=== PATIENT | male | born 2000 | race Caucasian/White ===

== ENCOUNTER 2024-08-01 07:16 | Inpatient (IN) | payer MEDICAID, OTHER ==
[~2024-08-01] VITALS: Ht 177.8 cm; Wt 60.3 kg
[2024-08-01] MEDS ORDERED: ZOLPIDEM TARTRATE 10 MG TABLET PO PRN (12:30)
[2024-08-01] MEDS ORDERED: OMEPRAZOLE 20 MG CAPSULE PO PRN (16:15)
[2024-08-01] MEDS ORDERED: PETROLATUM,WHITE 28 GM JELLY TP PRN (16:15)
[2024-08-01] MEDS ORDERED: LOPERAMIDE HCL 2 MG CAPSULE PO PRN (16:15)
[2024-08-01] MEDS ORDERED: BENZOCAINE/MENTHOL [CEPACOL] LOZENGE PO PRN (16:15)
[2024-08-01] MEDS ORDERED: MAGNESIUM HYDROXIDE SUSPENSION 30 ML UDCUP PO PRN (16:15)
[2024-08-01] MEDS ORDERED: ONDANSETRON 4 MG TABLET PO PRN (16:15)
[2024-08-01] MEDS ORDERED: DOCUSATE SODIUM 100 MG CAPSULE PO PRN (16:15)
[2024-08-01] MEDS ORDERED: MAG HYDROX/ALUMINUM HYD/SIMETH ES 30 ML SUSPENSION UDCUP PO PRN (16:15)
[2024-08-01] MEDS ORDERED: ALBUTEROL SULFATE HFA 90 MCG/PUFF 8 GM INHALER IH PRN (16:15)
[2024-08-01] MEDS ORDERED: BACITRACIN 28 GM OINTMENT TP PRN (16:15)
[2024-08-01 20:09] VITALS: RESP 18
[2024-08-02 08:54] VITALS: BP 108/64; PULSE 77; RESP 17; TEMP 97.6; O2SAT 99
[2024-08-02 20:05] VITALS: BP 124/73; PULSE 75; RESP 16; TEMP 97.6; O2SAT 100
[2024-08-03 08:31] VITALS: BP 103/60; PULSE 68; RESP 15; TEMP 97.7; O2SAT 99
[2024-08-03 20:35] VITALS: BP 152/80; PULSE 128; RESP 18; TEMP 97.7; O2SAT 98
[2024-08-03] MEDS: LORazepam 2 MG/ML VIAL IM ONE (20:46)
[2024-08-04 08:10] VITALS: BP 90/63; PULSE 63; RESP 16; TEMP 97.9; O2SAT 100
[2024-08-04] MEDS: NICOTINE POLACRILEX 4 MG LOZENGE PO PRN (20:11)
[2024-08-04 21:13] VITALS: BP 101/66; PULSE 81; RESP 18; TEMP 98.1; O2SAT 99
[2024-08-05 08:35] LABS: PLATELET COUNT (AUTO) 272 K/uL (150-450); RED BLOOD CELL COUNT(AUTO) 5.18 MIL/uL (4.50-5.90); RED CELL DISTRIBUTION WIDTH 13.5 % (11.5-14.5); WHITE BLOOD COUNT (AUTO) 5.1 K/uL (4.5-11.0)
[2024-08-05 08:58] VITALS: RESP 18
[2024-08-05 09:17] LABS: ASPARTATE AMINOTRANSFERASE 30 U/L (15-37); CALCIUM, TOTAL 9.0 mg/dL (8.8-10.5); CHOL/HDL RATIO 3.8 (4.2-7.3); CREATININE 0.93 mg/dL (0.60-1.30); GLOMERULAR FILTR. RATE CALC > 60 mL/min (>60); GLUCOSE,RANDOM 79 mg/dL (70-110); LDL CHOL (CALC.) 67 mg/dL (0-130); SODIUM SERUM 142 mmol/L (136-145); TOTAL PROTEIN, SERUM 7.2 g/dL (6.4-8.2); UREA NITROGEN, BLOOD 13 mg/dL (7-18)
[2024-08-05 09:33] LABS: APPEARANCE,URINE CLEAR (CLEAR); GLUCOSE, URINE (UA) NEGATIVE (NEGATIVE); LEUKOCYTE ESTERASE ,URINE NEGATIVE (NEGATIVE); NITRATE,URINE NEGATIVE (NEGATIVE); OCCULT BLOOD,URINE NEGATIVE (NEGATIVE); PH,URINE DRUG SCREEN 7.5 (5.0-8.0); SPECIFIC GRAVITIY, URINE 1.027 (1.003-1.030)
[2024-08-05 09:38] LABS: ALCOHOL, URINE DRUG SCREEN NEGATIVE (NEGATIVE); AMPHET/METH SCREEN,URINE NEGATIVE (NEGATIVE); BARBITURATE SCREEN, URINE NEGATIVE (NEGATIVE); CANNABINOID SCREEN,URINE POSITIVE (NEGATIVE); COCAINE SCREEN,URINE NEGATIVE (NEGATIVE); METHADONE SCREEN, URINE NEGATIVE (NEGATIVE)
[2024-08-05 20:24] VITALS: BP 110/76; PULSE 72; RESP 17; TEMP 97.9; O2SAT 99
[2024-08-06 08:24] VITALS: BP 102/65; PULSE 68; RESP 15; TEMP 98.3; O2SAT 99
[2024-08-06 20:30] VITALS: BP 124/88; PULSE 77; RESP 16; TEMP 98.6
[2024-08-07 09:03] VITALS: RESP 18
[2024-08-07 20:11] VITALS: BP 121/84; PULSE 85; RESP 18; TEMP 97.5; O2SAT 99
[2024-08-08 08:14] VITALS: BP 118/78; PULSE 99; RESP 17; TEMP 97.8; O2SAT 90
[2024-08-08 22:07] VITALS: BP 104/58; PULSE 88; RESP 15; TEMP 97.6; O2SAT 99
[2024-08-09 08:15] VITALS: BP 109/76; PULSE 94; RESP 18; TEMP 98; O2SAT 96
[2024-08-09 20:10] VITALS: BP 116/74; PULSE 84; RESP 16; TEMP 97.5; O2SAT 100
[2024-08-10] VITALS (7 sets, daily range): BP systolic 98–148; BP diastolic 61–90; PULSE 86–115; RESP 16–20; TEMP 97.2–102.9; O2SAT 95–99
[2024-08-10] MEDS: ACETAMINOPHEN 325 MG TABLET PO PRN (11:16)
[2024-08-11 08:23] VITALS: BP 130/75; PULSE 96; RESP 16; TEMP 98.7; O2SAT 99
[2024-08-11 20:10] VITALS: BP 130/98; PULSE 91; RESP 18; TEMP 97.8; O2SAT 98
[2024-08-12 13:46] VITALS: RESP 18
[2024-08-12] MEDS: IBUPROFEN 600 MG TABLET PO PRN (13:46)
[2024-08-12 14:46] VITALS: RESP 18
[2024-08-12 20:43] VITALS: BP 105/55; PULSE 87; RESP 18; TEMP 99.3
[2024-08-13 08:36] VITALS: BP 127/89; PULSE 100; RESP 17; TEMP 98.1; O2SAT 99
[2024-08-13 20:33] VITALS: BP 134/87; PULSE 85; RESP 18; TEMP 98.6; O2SAT 98
[2024-08-14 20:32] VITALS: BP 151/105; PULSE 91; RESP 18; TEMP 98.2; O2SAT 100
[2024-08-15 14:05] VITALS: BP 119/88; PULSE 105; RESP 18; TEMP 98.8; O2SAT 96
[2024-08-15 20:26] VITALS: BP 124/72; PULSE 95; RESP 18; TEMP 97.2; O2SAT 98
[2024-08-16 08:15] VITALS: BP 127/89; PULSE 97; RESP 18; TEMP 97.9; O2SAT 100
[2024-08-16 20:45] VITALS: BP 98/82; PULSE 95; RESP 18; TEMP 97.7; O2SAT 100
[2024-08-17 08:17] VITALS: BP 130/86; PULSE 99; RESP 17; TEMP 97; O2SAT 100
[2024-08-17 20:29] VITALS: BP 135/80; PULSE 82; RESP 17; TEMP 98.1; O2SAT 97
[2024-08-18 14:10] VITALS: RESP 18; TEMP 97.8
[2024-08-18 21:33] VITALS: BP 120/80; PULSE 101; RESP 16; TEMP 98; O2SAT 98
[2024-08-19 08:51] VITALS: BP 104/72; PULSE 87; RESP 17; TEMP 101.7; O2SAT 98
[2024-08-19] MEDS ORDERED: LORazepam 2 MG/ML VIAL ONE (12:58)
[2024-08-19] MEDS: LORazepam 2 MG/ML VIAL IM ONE (13:31)
[2024-08-19 20:37] VITALS: BP 125/72; PULSE 82; RESP 17; TEMP 98.3; O2SAT 98
[2024-08-20 08:42] VITALS: BP 107/69; PULSE 82; RESP 18; TEMP 98.1; O2SAT 99
[2024-08-20] MEDS ORDERED: LORazepam 2 MG/ML VIAL ONE (18:09)
[2024-08-20] MEDS: LORazepam 2 MG/ML VIAL IM ONE (19:39)
[2024-08-20 20:30] VITALS: BP 116/72; PULSE 84; RESP 18; TEMP 97.9; O2SAT 97
[2024-08-21 10:37] VITALS: RESP 16
[2024-08-21 20:26] VITALS: BP 137/73; PULSE 86; RESP 17; TEMP 98.8; O2SAT 98
[2024-08-22 08:45] VITALS: BP 129/97; PULSE 89; RESP 18; TEMP 98; O2SAT 97
[2024-08-22 20:45] VITALS: BP 119/73; PULSE 79; RESP 16; TEMP 97.4; O2SAT 98
[2024-08-23 08:48] VITALS: BP 126/84; PULSE 97; RESP 18; TEMP 98.1; O2SAT 97
[2024-08-23 15:45] VITALS: BP 143/102; PULSE 118; RESP 18; TEMP 98.4; O2SAT 96
[2024-08-23 17:07] VITALS: BP 121/88; PULSE 107; RESP 18
[2024-08-23 23:18] VITALS: BP 123/74; PULSE 102; RESP 18; TEMP 98.4; O2SAT 98
[2024-08-24 09:30] VITALS: BP 98/59; PULSE 69; RESP 17; TEMP 97.3; O2SAT 97
[2024-08-24 13:30] VITALS: BP 118/68; PULSE 76
[2024-08-24 23:54] VITALS: BP 102/56; PULSE 94; RESP 18; TEMP 97.2; O2SAT 97
[2024-08-25 08:00] VITALS: BP 118/80; PULSE 100; RESP 18; TEMP 97.5; O2SAT 98
[2024-08-25 22:25] VITALS: BP 124/81; PULSE 112; RESP 18; TEMP 98.3; O2SAT 99
[2024-08-26 19:45] VITALS: BP 123/72; PULSE 99; RESP 18; TEMP 98.1; O2SAT 98
[2024-08-26 21:56] VITALS: BP 113/69; PULSE 92; RESP 18; TEMP 98.2; O2SAT 98
[2024-08-27 07:53] LABS: PLATELET COUNT (AUTO) 244 K/uL (150-450); RED BLOOD CELL COUNT(AUTO) 5.15 MIL/uL (4.50-5.90); RED CELL DISTRIBUTION WIDTH 13.2 % (11.5-14.5); WHITE BLOOD COUNT (AUTO) 4.6 K/uL (4.5-11.0)
[2024-08-27 08:10] LABS: ASPARTATE AMINOTRANSFERASE 18 U/L (15-37); CALCIUM, TOTAL 9.3 mg/dL (8.8-10.5); CREATININE 0.87 mg/dL (0.60-1.30); GLOMERULAR FILTR. RATE CALC > 60 mL/min (>60); GLUCOSE,RANDOM 115 mg/dL (70-110); PHOSPHORUS 4.3 mg/dL (2.5-4.9); SODIUM SERUM 143 mmol/L (136-145); TOTAL PROTEIN, SERUM 7.6 g/dL (6.4-8.2); UREA NITROGEN, BLOOD 13 mg/dL (7-18)
[2024-08-27 08:48] VITALS: BP 134/79; PULSE 113; RESP 19; TEMP 97.3; O2SAT 98
[2024-08-27 20:00] VITALS: BP 122/87; PULSE 100; RESP 18; TEMP 98.3; O2SAT 99
[2024-08-27] MEDS: ZOLPIDEM TARTRATE 10 MG TABLET PO PRN (21:31)
[2024-08-28] MEDS ORDERED: QUET200T PO ×2 (07:47)
[2024-08-28 10:42] VITALS: BP 137/86; PULSE 98; RESP 18; TEMP 97.7; O2SAT 100
== END 2024-08-28 09:35 | disposition home or self-care (01) | DRG 750 ==
LOC: B3A 12:26 → B2X 08-10 12:58 → B2S 08-12 13:36 → 3EI 08-23 22:16
PROVIDERS: ADMIT Psychiatry & Neurology Psychiatry; ATTEND Psychiatry & Neurology Psychiatry
DX: F20.9 Schizophrenia, unspecified (principal); R45.851 Suicidal ideations; Z91.148 Patient's other noncompliance with medication regimen for other reason; F41.9 Anxiety disorder, unspecified; G47.00 Insomnia, unspecified; K59.00 Constipation, unspecified; Z72.0 Tobacco use
CPT/HCPCS: 80053; 80061; 80307; 81003; 83036; 83735; 84100; 84439; 84443; 85025; 87081; J1200; J1630; J2060; J3230

== ENCOUNTER 2024-08-10 13:11 | Emergency (ER) | payer MEDICAID, OTHER ==
[~2024-08-10] VITALS: Ht 175.3 cm; Wt 61.4 kg
[2024-08-10 13:14] VITALS: TEMP 97.2
[2024-08-10] MEDS: LORazepam 2 MG TABLET PO ONE (15:41)
[2024-08-10] MEDS: QUEtiapine FUMARATE 100 MG TABLET PO ONE (15:41)
[2024-08-10 17:13] VITALS: BP 125/79; PULSE 98; RESP 16; O2SAT 97
== END 2024-08-10 17:15 | disposition short-term general hospital (02) ==
LOC: EMS 13:11
DX: S00.03XA Contusion of scalp, initial encounter (principal); F20.9 Schizophrenia, unspecified; F12.90 Cannabis use, unspecified, uncomplicated; Y08.89XA Assault by other specified means, initial encounter; Y93.89 Activity, other specified; Y92.89 Other specified places as the place of occurrence of the external cause; Y99.8 Other external cause status
CPT/HCPCS: 99283